=== PATIENT | female | born 1950 | race Caucasian/White ===

== ENCOUNTER → 2023-10-12 12:12 | Outpatient (REF) | payer MEDICARE, OTHER, SELFPAY | LOC: RADI 12:12 | PROVIDERS: ATTENDING PHYSICIAN Podiatrist; FAMILY PHYSICIAN Internal Medicine | DX: G57.61 Lesion of plantar nerve, right lower limb (principal); M79.671 Pain in right foot | CPT/HCPCS: 64455; 76942 ==